=== PATIENT | male | born 1985 | race Hispanic/Latino ===

== ENCOUNTER 2021-05-29 21:08 | Emergency (ER) | payer SELFPAY ==
[2021-05-29] MEDS ORDERED: Xylocaine 1% w/ Epi 1:100K 10 ML VIAL ONE (22:44)
[2021-05-29] MEDS ORDERED: Boostrix 0.5 ML (Tdap) VIAL ONE (22:44)
[2021-05-29] MEDS ORDERED: Bacitracin 1 PK ONE (23:31)
== END 2021-05-29 23:50 | disposition home or self-care (01) ==
LOC: ERS 21:08
DX: S81.812A Laceration without foreign body, left lower leg, initial encounter (principal); W45.8XXA Other foreign body or object entering through skin, initial encounter
CPT/HCPCS: 12001; 90471; 90715